=== PATIENT | male | born 1955 | race Two or more races ===

== ENCOUNTER 2017-11-26 16:34 | Emergency (ER) | payer BC, OTHER ==
[~2017-11-26] VITALS: Ht 167.6 cm; Wt 68.0 kg
[~2017-11-26 16:34] MED LIST: EPINEPHRINE 0.1MG/ML (1:10,000) 10ML SYR ONE
[2017-11-26 16:39] VITALS: BP 0/0
[2017-11-26 17:25] LABS: BASOPHILS % 0.9 % (0.0-2.0); EOSINOPHILS % 0.1 % (0.0-5.0); LYMPHOCYTES % 14.2 % (20.0-50.0); MEAN CORPUSCULAR HEMOGLOBIN 26.8 pg (28.0-32.0); MEAN CORPUSCULAR VOLUME 85.9 fL (80.0-94.0); MONOCYTES % 9.4 % (2.0-8.0); NEUTROPHILS % 75.4 % (40.0-76.0); PLATELET 250 x1000/uL (130-400); RED BLOOD CELL COUNT 2.24 mill/uL (4.7-6.1); RED CELL DISTRIBUTION WIDTH 15.8 % (11.6-14.6)
[2017-11-26 17:26] LABS: CHLORIDE 128 mEq/L (98-107)
[2017-11-26 17:28] LABS: INR 1.8; PARTIAL THROMBOPLASTIN TIME 69.6 sec (23.4-31.0); PROTHROMBIN TIME 18.2 sec (9.1-11.1)
[2017-11-26 17:29] LABS: HEMATOCRIT. 19.2 % (42.0-52.0)
== END 2017-11-26 20:07 | disposition expired ==
LOC: ER 16:34
DX: I46.9 Cardiac arrest, cause unspecified (principal); K92.2 Gastrointestinal hemorrhage, unspecified
CPT/HCPCS: 31500; 36415; 36430; 80053; 83690; 85025; 85610; 85730; 86850; 86900; 86901; 86920; 92950; 99285; A4217; J3490; P9016